=== PATIENT | female | born 1985 | race Two or more races ===

== ENCOUNTER 2024-03-17 12:45 | Inpatient (IN) | payer OTHER ==
[~2024-03-17] VITALS: Ht 160 cm; Wt 59.0 kg
[2024-03-20] MEDS ORDERED: POVIDONE-IODINE 118 ML BOTT TOP ONE (18:15)
[2024-03-20] MEDS ORDERED: CEFAZOLIN SODIUM 1,000 MG VIAL IV ONE (18:15)
[2024-03-20] MEDS ORDERED: SUGAMMADEX SODIUM 200 MG/2 ML VIAL IV NR (19:15)
[2024-03-20] MEDS ORDERED: THROMBIN,HU/FIBRINOGEN/CALCIUM 10 ML SYRINGE TOP ONE (19:15)
[2024-03-20] MEDS ORDERED: KETOROLAC TROMETHAMINE 60 MG VIAL IM ONE (20:15)
[2024-03-20] MEDS ORDERED: MEPERIDINE HCL/PF 50 MG/ML VIAL IV SCH (20:15)
[2024-03-20] MEDS ORDERED: PROMETHAZINE HCL 25 MG/ML AMPUL IV SCH (20:15)
[2024-03-21 06:42] LABS: HEMATOCRIT 29.4 % (36.0-45.00); HEMOGLOBIN 10.1 g/dL (12.0-15.00); MEAN CELL VOLUME 83.9 fL (80.00-100.00); MEAN CORPUSCULAR HEMOGLOBIN 28.9 pg (27.00-32.0); MEAN CORPUSCULAR HGB CONC 34.4 g/dl (32.0-36.0); PLATELET COUNT 289 K/uL (150-450); RED BLOOD COUNT 3.51 M/uL (4.00-6.00); RED CELL DISTRIBUTION WIDTH 13.3 % (11.5-14.5)
[2024-03-21] MEDS ORDERED: OxyCODONE HCL/APAP UD (PERCOCET) PO SCH (08:00)
[2024-03-21] MEDS ORDERED: SIMETHICONE 125 MG CAPSULE PO SCH (09:00)
[2024-03-21] MEDS ORDERED: IRON FUM,PS/FOLIC/BCOMP,C NO.9 1 CAP CAPSULE PO SCH (09:00)
[2024-03-21] MEDS ORDERED: DOCUSATE CALCIUM 240 MG CAPSULE PO SCH (09:00)
[2024-03-21] MEDS ORDERED: IBU800 MG PO (13:18)
[2024-03-21] MEDS ORDERED: SURFAK240 M1 PO (13:18)
[2024-03-21] MEDS ORDERED: INTEGRA PLUS C1 EACH PO (13:18)
[2024-03-21] MEDS ORDERED: SIMETHICONE125 M1 PO (13:19)
== END 2024-03-21 13:39 | disposition home or self-care (01) | DRG 743 ==
LOC: OB/GYN 03-20 12:45 → O/R 03-20 15:06 → OB/GYN 03-20 17:15
PROVIDERS: ADMIT Specialist; ATTEND Specialist
PROC: 0UB20ZZ Excision of Bilateral Ovaries, Open Approach (ICD-10-PCS; 2024-03-20)
PROC: 0UB90ZZ Excision of Uterus, Open Approach (ICD-10-PCS; principal; 2024-03-20 17:15)
DX: D25.1 Intramural leiomyoma of uterus (principal); N73.6 Female pelvic peritoneal adhesions (postinfective); D27.1 Benign neoplasm of left ovary; D27.0 Benign neoplasm of right ovary; N39.3 Stress incontinence (female) (male); N80.101 Endometriosis of right ovary, unspecified depth; Z20.822 Contact with and (suspected) exposure to COVID-19